=== PATIENT | male | born 1940 | race Caucasian/White ===

== ENCOUNTER 2022-03-07 20:04 | Emergency (ER) | payer OTHER ==
[~2022-03-07] VITALS: Ht 172.7 cm; Wt 124.7 kg
--- NOTE | 2022-03-07 20:25 | NUR ---
Called [facility] to [facility], eta 75-90 min~2200.
--- NOTE | 2022-03-07 22:16 | NUR ---
[facility] here for transfer back to [facility] Patient discharged in stable condition. Written and verbal after care instructions given to. Patient verbalizes understanding of instructions. Stressed follow up or return to ER for worsening s/s.
[2022-03-07 23:09] VITALS: BP 141/82
== END 2022-03-07 22:18 ==
LOC: ER 20:04
DX: Z43.1 Encounter for attention to gastrostomy (principal); F09 Unspecified mental disorder due to known physiological condition; Z86.73 Personal history of transient ischemic attack (TIA), and cerebral infarction without residual deficits; F03.90 Unspecified dementia, unspecified severity, without behavioral disturbance, psychotic disturbance, mood disturbance, and anxiety; J96.10 Chronic respiratory failure, unspecified whether with hypoxia or hypercapnia; Z99.81 Dependence on supplemental oxygen; E11.9 Type 2 diabetes mellitus without complications; I11.0 Hypertensive heart disease with heart failure; I50.9 Heart failure, unspecified